=== PATIENT | male | born 1990 ===

== ENCOUNTER 2017-04-12 09:05 | Emergency (ER) | payer OTHER ==
[2017-04-12 09:09] VITALS: BP 146/67; PULSE 94; RESP 20; TEMP 97.9; O2SAT 99
[2017-04-12 09:11] VITALS: BMI 24.7
[2017-04-12] MEDS ORDERED: DiphenhydrAMINE 50 mg/ml Inj IVP STA (09:41)
[2017-04-12] MEDS ORDERED: Sodium Chloride 0.9% 1,000 ML IV STA (09:41)
--- NOTE | 2017-04-12 10:08 | ED PDOC ---
HPI: Allergic Reaction Time Seen by Provider: 04/12/17 09:35 Chief Complaint (Nursing): Allergic Reaction Chief Complaint (Provider): Allergic Reaction History Per: Patient History/Exam Limitations: no limitations Onset/Duration Of Symptoms: Days Current Symptoms Are (Timing): Still Present Additional Complaint(s): 26 y/o male presents to the [facility] with a complaint of an itchy rash noted to the arms, back, chest, and legs since yesterday, 04/11/2017. Reports unknown allergen. Denies shortness of breath or tightness of the throat. Past Medical History Reviewed: Historical Data, Nursing Documentation, Vital Signs Vital Signs: Last Vital Signs Temp 97.9 F 04/12/17 09:08 Pulse 94 H 04/12/17 09:08 Resp 20 04/12/17 09:08 BP 146/67 04/12/17 09:08 Pulse Ox 99 04/12/17 09:08 - Medical History PMH: No Chronic Diseases - Surgical History Surgical History: No Surg Hx - Family History Family History: States: Unknown Family Hx - Social History Current smoker - smoking cessation education provided: No Alcohol: None Drugs: Denies - Home Medications Home Medications: Ambulatory Orders Medication Instructions Recorded Cetirizine HCl [Zyrtec] 10 mg PO DAILY #10 capsule 04/12/17 Famotidine [Pepcid] 20 mg PO Q12 #20 tab 04/12/17 predniSONE [predniSONE Tab] 10 mg PO TID #15 tab 04/12/17 - Allergies Allergies/Adverse Reactions: Allergies Allergy/AdvReac Type Severity Reaction Status Date / Time turpentine oil Allergy SHORTNESS Verified 04/12/17 09:35 OF BREATH Review of Systems ROS Statement: Except As Marked, All Systems Reviewed And Found Negative ENT: Negative for: Other (Tightness of the throat) Respiratory: Negative for: Shortness of Breath Skin: Positive for: Rash (Itchy rash on the arms, back, chest, and legs) Physical Exam - Reviewed Nursing Documentation Reviewed: Yes Vital Signs Reviewed: Yes - Physical Exam Appears: Positive for: Non-toxic, No Acute Distress Head Exam: Positive for: ATRAUMATIC, NORMAL INSPECTION, NORMOCEPHALIC Skin: Positive for: Warm, Dry, Rash (Erythematous maculopapular rash noted to the back, chest, forearms bilaterally, and thighs bilaterally ) ENT: Positive for: Normal ENT Inspection. Negative for: Other (No throat swelling or stridor) Neck: Positive for: Normal, Supple Cardiovascular/Chest: Positive for: Regular Rate, Rhythm. Negative for: Murmur Respiratory: Positive for: Normal Breath Sounds. Negative for: Accessory Muscle Use, Wheezing, Respiratory Distress Neurologic/Psych: Positive for: Alert, Oriented (x3) - ECG O2 Sat by Pulse Oximetry: 99 (RA) Pulse Ox Interpretation: Normal - Progress Re-evaluation Time: 10:35 Condition: Improved - Critical Care Notes:: Time: 09:41 Initial impression: Allergic reaction to unknown allergen Initial plan: --Benadryl 50 mg IVP --Pepcid 20 mg IVP --Methylprednisolone 125 mg IVP --Sodium Chloride 1L IV 100 mls/hr --Reevaluation Scribe Attestation: Documented by Kelly Storey, acting as a scribe for Costa Rene MD. Provider Scribe Attestation: All medical record entries made by the Scribe were at my direction and personally dictated by me. I have reviewed the chart and agree that the record accurately reflects my personal performance of the history, physical exam, medical decision making, and the department course for this patient. I have also personally directed, reviewed, and agree with the discharge instructions and disposition. Disposition - Clinical Impression Clinical Impression: Allergic reaction - Disposition Referrals: FAMILY PROVIDER,NO [Primary Care Provider] - Disposition: Routine/Home Disposition Time: 10:35 Condition: FAIR Prescriptions: Cetirizine HCl [Zyrtec] 10 mg PO DAILY #10 capsule Famotidine [Pepcid] 20 mg PO Q12 #20 tab predniSONE [predniSONE Tab] 10 mg PO TID #15 tab Instructions: General Allergic Reaction (ED) Forms: [facility] (Bel[place]ian) Print Language: GREEK
== END 2017-04-12 11:08 | disposition home or self-care (01) ==
LOC: SUPCPDRO 09:05 → H.ER 09:05
DX: T78.40XA Allergy, unspecified, initial encounter (principal); X58.XXXA Exposure to other specified factors, initial encounter
CPT/HCPCS: 96374; 96375; 99283; J1200; J2930; J7040